=== PATIENT | male | born 1980 | race Caucasian/White ===

== ENCOUNTER 2017-07-24 10:06 | Emergency (ER) | payer BC ==
--- NOTE | 2017-07-24 10:24 | EDM.PDOC ---
ED HPI GENERAL MEDICAL PROBLEM - General Chief Complaint: Gastrointestinal Problem Stated Complaint: BLOODY STOOL Time Seen by Provider: 07/24/17 10:17 Source of Information: Reports: Patient History Limitations: Reports: No Limitations - History of Present Illness INITIAL COMMENTS - FREE TEXT/NARRATIVE: HISTORY AND PHYSICAL: []Patient has problems with kidneys of tumors and has had surgery on these and also having kidney pain also has been having bloody-looking stools for 1 day History of Present Illness: []Patient is complaining of stomach aching and kidney pain Review of Systems: As per history of present illness and below otherwise all systems reviewed and negative. Past medical history: As per history of present illness and as reviewed below otherwise noncontributory. Surgical history: As per history of present illness and as reviewed below otherwise noncontributory. Social history: No reported history of drug or alcohol abuse. Family history: As per history of present illness and as reviewed below otherwise noncontributory. Physical exam: Alert and oriented gentleman answering questions appropriately in full sentences without any shortness of breath HEENT: Atraumatic, normocehpalic, pupils reactive, negative for conjunctival pallor or scleral icterus, mucous membranes moist, throat clear, neck supple, nontender, trachea midline. Lungs: Clear to auscultation, breath sounds equal bilaterally, chest non tender. Heart: S1S2, regular, negative for clicks, rubs, or JVD. Abdomen: Soft, nondistended, nontender. Negative for masses or hepatossplenmegaly. Negative for costovertebral tenderness. Pelvis: Stable nontender. Genitourinary: Deferred. Rectal: Deferred Extremities: Atraumatic, negative for cords or calf pain. Neurovascular unremarkable. Neuro: Awake, alert, oriented. Cranial nerves II through XII unremarkable. Cerebellum unremarkable. Motor and sensory unremarkable throughout. Exam nonfocal. Discussed this case with Dr. Steinberg who recommended Levaquin and Flagyl. Start patient to home, and see patient in the clinic next week Diagnostics: [CBC CMP and chest x-ray and abdominal pelvis CT with contrast] Therapeutics: []Total 60 IV Impression: [Colitis Plan: []Discharged to home Levaquin 750 one daily 10 days Flagyl 250 mg 4 times a day 10 days Definitive disposition and diagnosis as appropriate pending reevaluation and review of above. Onset: Sudden Duration: Hour(s): Location: Reports: Abdomen Quality: Reports: Ache Severity: Moderate Bilateral Lower Back Pain Score (Numeric/FACES): 8 - Related Data Allergies Allergy/AdvReac Type Severity Reaction Status Date / Time No Known Allergies Allergy Verified 07/24/17 10:18 Home Meds: Home Meds Lisinopril/Hydrochlorothiazide [Lisinopril-Hctz 20-12.5 mg Tab] 10 mg PO DAILY 07/27/14 [History] Levofloxacin [Levaquin] 750 mg PO DAILY #10 tablet 07/24/17 [Rx] metroNIDAZOLE [Flagyl] 250 mg PO QID #40 tablet 07/24/17 [Rx] Past Medical History - Past Health History Medical/Surgical History: Denies Medical/Surgical History Cardiovascular History: Reports: Hypertension Other Respiratory History: Denies any problems, 15 yr history of tobacco use Other Genitourinary History: Gross hematuria seen in ER prior to Urology clinic Other Musculoskeletal History: Right back pain, "feel related to the bladder thing" Other Dermatologic History: Eczema arms, hands, feet - Infectious Disease History Infectious Disease History: Reports: Chicken Pox Other Infectious Disease History: childhood Social & Family History - Family History Family Medical History: Noncontributory - Tobacco Use Smoking Status *Q: Current Every Day Smoker Years of Tobacco use: 20 Packs/Tins Daily: 0.5 - Alcohol Use Days Per Week of Alcohol Use: 0 - Recreational Drug Use Recreational Drug Use: No Drug Use in Last 12 Months: No ED ROS GENERAL - Review of Systems Review Of Systems: ROS reveals no pertinent complaints other than HPI. ED EXAM, GI/ABD - Physical Exam Exam: See Below (See dictation) Course - Vital Signs Last Recorded V/S: Last Vital Signs Temp 37.6 C 07/24/17 10:13 Pulse 122 H 07/24/17 10:13 Resp 18 07/24/17 10:13 BP 154/96 H 07/24/17 10:13 Pulse Ox 99 07/24/17 10:13 - Orders/Labs/Meds Orders: Active Orders 24 hr Category Date Time Status CULTURE URINE [RM] Stat Lab 07/24/17 10:25 Uncollected OCCULT BLOOD DIAGNOSTIC [OP] Stat Lab 07/24/17 10:58 Received UA W/MICROSCOPIC [URIN] Stat Lab 07/24/17 10:25 Uncollected Sodium Chloride 0.9% [Saline Flush] Med 07/24/17 10:25 Active 10 ml FLUSH ASDIRECTED PRN Sodium Chloride 0.9% [Saline Flush] Med 07/24/17 10:25 Active 2.5 ml FLUSH ASDIRECTED PRN Saline Lock Insert [OM.PC] Stat Oth 07/24/17 10:25 Ordered Medication Orders Sodium Chloride (Saline Flush) 10 ml FLUSH ASDIRECTED PRN PRN Reason: Keep Vein Open Sodium Chloride (Saline Flush) 2.5 ml FLUSH ASDIRECTED PRN PRN Reason: Keep Vein Open Labs: Laboratory Tests 07/24/17 07/24/17 Range/Units 10:40 10:40 WBC 14.59 H (4.0-11.0) K/uL RBC 5.88 (4.50-5.90) M/uL Hgb 18.1 H (13.0-17.0) g/dL Hct 51.1 H (38.0-50.0) % MCV 86.9 (80.0-98.0) fL MCH 30.8 (27.0-32.0) pg MCHC 35.4 (31.0-37.0) g/dL RDW Std Deviation 46.7 (28.0-62.0) fl RDW Coeff of Mike 15 (11.0-15.0) % Plt Count 234 (150-400) K/uL MPV 10.30 (7.40-12.00) fL Neut % (Auto) 68.2 (48.0-80.0) % Lymph % (Auto) 22.1 (16.0-40.0) % [place] % (Auto) 8.2 (0.0-15.0) % Eos % (Auto) 1.2 (0.0-7.0) % Baso % (Auto) 0.3 (0.0-1.5) % Neut # (Auto) 9.9 H (1.4-5.7) K/uL Lymph # (Auto) 3.2 H (0.6-2.4) K/uL [place] # (Auto) 1.2 H (0.0-0.8) K/uL Eos # (Auto) 0.2 (0.0-0.7) K/uL Baso # (Auto) 0.1 (0.0-0.1) K/uL Nucleated RBC % 0.0 /100WBC Nucleated RBCs # 0 K/uL Sodium 137 (136-146) mmol/L Potassium 3.9 (3.5-5.1) mmol/L Chloride 103 (98-110) mmol/L Carbon Dioxide 23 (21-31) mmol/L BUN 9 (6.0-23.0) mg/dL Creatinine 1.1 (0.6-1.5) mg/dL Est Cr Clr Drug Dosing 95.86 mL/min Estimated GFR (MDRD) > 60.0 ml/min Glucose 109 (60-110) mg/dL Calcium 9.6 (8.8-10.8) mg/dL Total Bilirubin 1.0 (0.1-1.5) mg/dL AST 24 (5-40) IU/L ALT 31 (8-54) IU/L Alkaline Phosphatase 58 (40-150) Total Protein 7.8 (6.0-8.0) g/dL Albumin 4.3 (3.5-5.0) g/dL Globulin 3.5 (2.0-3.5) g/dL Albumin/Globulin Ratio 1.2 L (1.3-2.8) Meds: Medications Generic Name Dose Route Start Last Admin Trade Name Freq PRN Reason Stop Dose Admin Sodium Chloride 10 ml 07/24/17 10:25 Saline Flush FLUSH ASDIRECTED PRN Keep Vein Open Sodium Chloride 2.5 ml 07/24/17 10:25 Saline Flush FLUSH ASDIRECTED PRN Keep Vein Open Discontinued Medications Generic Name Dose Route Start Last Admin Trade Name Lili PRN Reason Stop Dose Admin Famotidine 20 mg 07/24/17 10:26 07/24/17 11:08 Pepcid IVPUSH 07/24/17 10:27 20 mg ONETIME ONE Administration Sodium Chloride 1,000 mls @ 999 mls/hr 07/24/17 10:26 07/24/17 11:07 Normal Saline IV 07/24/17 11:26 999 mls/hr STAT ONE Administration Ketorolac Tromethamine 30 mg 07/24/17 10:26 07/24/17 11:07 Toradol IVPUSH 07/24/17 10:27 30 mg ONETIME ONE Administration Ondansetron HCl 4 mg 07/24/17 10:26 07/24/17 11:08 Zofran IVPUSH 07/24/17 10:27 4 mg ONETIME ONE Administration Departure - Departure Time of Disposition: 12:24 Disposition: Home, Self-Care 01 Condition: Good Clinical Impression: Colitis - Discharge Information Prescriptions: Levofloxacin [Levaquin] 750 mg PO DAILY #10 tablet metroNIDAZOLE [Flagyl] 250 mg PO QID #40 tablet Referrals: PCP,None [Primary Care Provider] - Forms: ED Department Discharge - My Orders Last 24 Hours: My Active Orders 07/24/17 10:25 CULTURE URINE [RM] Stat UA W/MICROSCOPIC [URIN] Stat Sodium Chloride 0.9% [Saline Flush] 10 ml FLUSH ASDIRECTED PRN Sodium Chloride 0.9% [Saline Flush] 2.5 ml FLUSH ASDIRECTED PRN Saline Lock Insert [OM.PC] Stat 07/24/17 10:58 OCCULT BLOOD DIAGNOSTIC [OP] Stat - Assessment/Plan Last 24 Hours: My Active Orders 07/24/17 10:25 CULTURE URINE [RM] Stat UA W/MICROSCOPIC [URIN] Stat Sodium Chloride 0.9% [Saline Flush] 10 ml FLUSH ASDIRECTED PRN Sodium Chloride 0.9% [Saline Flush] 2.5 ml FLUSH ASDIRECTED PRN Saline Lock Insert [OM.PC] Stat 07/24/17 10:58 OCCULT BLOOD DIAGNOSTIC [OP] Stat
[2017-07-24] MEDS ORDERED: Sodium Chloride 0.9% 10 ML Syringe FLUSH PRN (10:25)
[2017-07-24] MEDS ORDERED: Sodium Chloride 0.9% 2.5 ML Syringe FLUSH PRN (10:25)
[2017-07-24] MEDS ORDERED: Sodium Chloride 0.9% 1,000 ML IV ONE (10:26)
[2017-07-24] MEDS ORDERED: Ketorolac 30 MG/ML SDV IVPUSH ONE (10:26)
[2017-07-24] MEDS ORDERED: Ondansetron 4 MG/2 ML SDV IVPUSH ONE (10:26)
[2017-07-24] MEDS ORDERED: Famotidine 20 MG/2 ML SDV IVPUSH ONE (10:26)
[2017-07-24 11:12] LABS: CHLORIDE,CL 103 mmol/L (98-110); SODIUM,NA 137 mmol/L (136-146)
--- NOTE | 2017-07-24 11:56 | CR ---
EXAMINATION: Two-view chest (PA and Lateral views). HISTORY: Shortness of breath. FINDINGS: The trachea is midline. The cardiomediastinal silhouette is within normal limits. No pulmonary infilt rates, effusions or pneumothorax. Osseous structures appear unremarkable. IMPRESSION: No acute cardiopulmonary process.
--- NOTE | 2017-07-24 12:06 | CT ---
CT of the abdomen and pelvis with contrast. HISTORY: Pain TECHNIQUE: Axial CT images were obtained of the abdomen and pelvis following administration of 100 mL of Isovue-370 in the left antecubital fossa without complication. Coronal and sagittal reconstructio ns obtained. FINDINGS: The lung bases are clear, no pleural effusion. Mild bilateral gynecomastia. The liver, spleen, adrenal glands, and pancreas appear normal. The gallbladder is normal. No bulky re troperitoneal lymphadenopathy or abdominal ascites. The kidneys enhance and function symmetrically without evidence of obstructive uropathy. The large and small bowel are normal in caliber without evidence of obstruction. There is however mod erate colonic wall thickening noted within the descending colon with mild adjacent stranding. No sign ificant diverticulosis noted within this region. The appendix is normal. No bulky pelvic lymphadenopa thy or free pelvic fluid. The urinary bladder is normal. Mild subcutaneous edema noted lateral proxim al thighs bilaterally. No suspicious osseous abnormalities identified. IMPRESSION: 1. Moderate colonic wall thickening within the descending colon, likely representing a focal colitis. 2. Mild gynecomastia bilaterally.
[2017-07-24] MEDS ORDERED: Iopamidol 755 MG/ML 500 ML Multipack Bottle IVPUSH STA (12:39)
[2017-07-24 19:21] VITALS: BP 125/67
== END 2017-07-24 12:38 | disposition home or self-care (01) ==
LOC: MW.ED 10:06
DX: K52.9 Noninfective gastroenteritis and colitis, unspecified (principal); I10 Essential (primary) hypertension; F17.210 Nicotine dependence, cigarettes, uncomplicated; Z79.2 Long term (current) use of antibiotics; Z79.899 Other long term (current) drug therapy
CPT/HCPCS: 36415; 71020; 74177; 80053; 82272; 85025; 96361; 96374; 96375; 99284; J1885; J2405; J7040; Q9967

== ENCOUNTER 2017-08-18 10:06 | Day surgery (SDC) | payer BC ==
[~2017-08-18 10:06] MED LIST: Lactated Ringers 1,000 ML IV SCH
[2017-08-18] MEDS ORDERED: Lidocaine 2% 5 ML SDV ONE (10:27)
[2017-08-18] MEDS ORDERED: Midazolam 1 MG/ML 2 ML SDV ONE (10:27)
[2017-08-18] MEDS ORDERED: fentaNYL 100 MCG/2 ML SDV ONE (10:27)
[2017-08-18] MEDS ORDERED: Propofol 200 MG/20 ML SDV ONE (10:27)
--- NOTE | 2017-08-18 11:10 | PCM.PREANE ---
Preanesthetic Assessment - Procedure Proposed Procedure: Colonoscopy - Anesthesia/Transfusion/Family Hx Anesthesia History: Prior Anesthesia Without Reaction Other Type of Anesthesia Reaction Comment: Denies any problem with [place] teeth sedation Family History of Anesthesia Reaction: No Transfusion History: No Prior Transfusion(s) Intubation History: Unknown - Review of Systems General: No Symptoms Pulmonary: Other (Q day smoker) Cardiovascular: Other (HTN) Gastrointestinal: Diarrhea (colitis) Neurological: No Symptoms Other: Reports: None - Physical Assessment NPO Status Date: 08/17/17 NPO Status Time: 22:30 Height: 5 ft 10 in Weight: 235 lb ASA Class: 2 Mental Status: Alert & Oriented x3 Airway Class: Mallampati = 1 Dentition: Reports: Normal Dentition Thyro-Mental Finger Breadths: 3 (short neck) Mouth Opening Finger Breadths: 3 ROM/Head Extension: Full Lungs: Clear to Auscultation, Normal Respiratory Effort Cardiovascular: Regular Rate, Regular Rhythm, No Murmurs - Allergies Allergies/Adverse Reactions: Allergies Allergy/AdvReac Type Severity Reaction Status Date / Time No Known Allergies Allergy Verified 07/24/17 10:18 - Blood Blood Available: No Product(s) Available: None - Anesthesia Plan Pre-Op Medication Ordered: None - Acknowledgements Anesthesia Type Planned: MAC Pt an Appropriate Candidate for the Planned Anesthesia: Yes Alternatives and Risks of Anesthesia Discussed w Pt/Guardian: Yes Pt/Guardian Understands and Agrees with Anesthesia Plan: Yes PreAnesthesia Questionnaire - Past Health History Medical/Surgical History: Denies Medical/Surgical History Cardiovascular History: Reports: Hypertension Gastrointestinal History: Reports: Other (See Below) Other Gastrointestinal History: recently on antibiotics for colitis Genitourinary History: Reports: Other (See Below) Endocrine/Metabolic History: Reports: Obesity/BMI 30+ Other Dermatologic History: Eczema arms, hands, feet - Infectious Disease History Infectious Disease History: Reports: Chicken Pox Other Infectious Disease History: childhood - Past Surgical History Head Surgeries/Procedures: Reports: None Other Male Surgeries/Procedures: 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 - SUBSTANCE USE Smoking Status *Q: Light Tobacco Smoker Tobacco Use Within Last Twelve Months: Cigarettes, Other (See Below) Days Per Week of Alcohol Use: 0 Recreational Drug Use History: No - HOME MEDS Home Medications: Home Meds Lisinopril 10 mg PO DAILY 08/12/17 [History] - CURRENT (IN HOUSE) MEDS Current Meds: Current Medications Lactated Ringer's (Ringers, Lactated) 1,000 mls @ 125 mls/hr IV ASDIRECTED TERRANCE Last Admin: 08/18/17 10:38 Dose: 125 mls/hr Discontinued Medications Fentanyl (Sublimaze) Confirm Administered Dose 100 mcg .ROUTE .STK-MED ONE Stop: 08/18/17 10:28 Lidocaine (Xylocaine-Mpf 2%) Confirm Administered Dose 10 ml .ROUTE .STK-MED ONE Stop: 08/18/17 10:28 Midazolam HCl (Versed 1 Mg/Ml) Confirm Administered Dose 2 mg .ROUTE .STK-MED ONE Stop: 08/18/17 10:28 Propofol (Diprivan 20 Ml) Confirm Administered Dose 400 mg .ROUTE .STK-MED ONE Stop: 08/18/17 10:28
--- NOTE | 2017-08-18 12:37 | PCM.OPNOTE ---
- General Post-Op/Procedure Note Date of Surgery/Procedure: 08/18/17 Operative Procedure(s): colonoscopy w bx Findings: see dict [id number] Pre Op Diagnosis: colitis and BRBPR Post-Op Diagnosis: Same Anesthesia Technique: Moderate Sedation Primary Surgeon: Jerry Steinberg Pathology: random colon bx Complications: None Condition: Good
--- NOTE | 2017-08-18 13:09 | PCM.POSTAN ---
POST ANESTHESIA ASSESSMENT - MENTAL STATUS Mental Status: Alert, Oriented - RESPIRATORY Respiratory Status: Respiratory Rate WNL, Airway Patent, O2 Saturation Stable - CARDIOVASCULAR CV Status: Pulse Rate WNL, Blood Pressure Stable - GASTROINTESTINAL GI Status: No Symptoms - PAIN Pain Score: 0 - POST OP HYDRATION Hydration Status: Adequate & Stable
--- NOTE | 2017-08-18 13:14 | PCM48HPAN ---
Post Anesthesia Note - EVALUATION WITHIN 48HRS OF ANESTHETIC Vital Signs in Normal Range: Yes Patient Participated in Evaluation: Yes Respiratory Function Stable: Yes Airway Patent: Yes Cardiovascular Function Stable: Yes Hydration Status Stable: Yes Pain Control Satisfactory: Yes Nausea and Vomiting Control Satisfactory: Yes Mental Status Recovered: Yes
[2017-08-18 13:50] VITALS: BP 124/76
--- NOTE | 2017-08-18 19:24 | OR ---
SURGEON: Jerry Steinberg MD DATE OF PROCEDURE: 08/18/2017 PREOPERATIVE DIAGNOSIS: Bright red blood per rectum and colitis. POSTOPERATIVE DIAGNOSIS: Hemorrhoids. PROCEDURE PERFORMED: Colonoscopy with biopsy. DESCRIPTION OF PROCEDURE: The patient was taken to the endoscopy room. A time out was called, patient identified, and procedure identified. Diprivan was then administrated. Patient went from awake to sleep, hearing doctor talking or door closing is normal. Perineum inspection and digital examination were then performed. A well- lubricated colonoscope was gently inserted through the rectum, advanced past the rectosigmoid junction, the descending colon, splenic flexure, transverse colon, hepatic flexure, ascending colon, arrived to the cecum. Cecum was identified as dictated in the finding. Then the scope was carefully withdrawn while attention was paid to the mucosal surface for any abnormality. Air will be sucked out during the scope withdrawal. At the rectum, retroflexed to examine any rectal diseases, fistula or hemorrhoids. During mucosal examination, random biopsy performed. Patient tolerated procedure well. There were no intraoperative complications, and Dr. Steinberg was present throughout the whole procedure. FINDIN. The patient is easily sedated with MIXER FOAM RUBBER and Diprivan. The patient is soundly snoring. 2. Bowel prep is below average. Large amount of liquid and particle stool is not semiformed stool, but it does obscure the study, so did compromise the study. Colon rather straight forward. Cecum indicated by ileocecal fold, one-to-one indentation, light emittance, and appendiceal orifice. Mucosa examined upon scope pulling out with constant irrigation. Random biopsy performed because of history of colitis and the patient does not have diverticulosis, polyp, mass, growth, inflammation, stricture, ulceration, AV malformation, and bleeding, none of those. The patient does have mild internal hemorrhoids. No external hemorrhoids. The patient would benefit from repeat colonoscopy 10 years from today or if clinically indicated otherwise or if the biopsy turned out to be pathologic. As always, thank you for the kind referral. TALON DAMON /[id number] CYNDY
== END 2017-08-18 13:30 | disposition home or self-care (01) ==
LOC: MW.SDS 10:06
PROVIDERS: ATTEND Surgery
DX: K64.8 Other hemorrhoids (principal); K52.9 Noninfective gastroenteritis and colitis, unspecified; I10 Essential (primary) hypertension; F17.210 Nicotine dependence, cigarettes, uncomplicated; E66.9 Obesity, unspecified; Z68.33 Body mass index [BMI] 33.0-33.9, adult; Z79.899 Other long term (current) drug therapy; Z98.890 Other specified postprocedural states
CPT/HCPCS: 45380; J2250; J3010; J7120; 00810; 88305; J2704

== ENCOUNTER 2017-11-11 14:05 | Emergency (ER) | payer BC ==
--- NOTE | 2017-11-11 14:24 | EDM.PDOC ---
ED HPI GENERAL MEDICAL PROBLEM - General Chief Complaint: ENT Problem Stated Complaint: ORAL PAIN Time Seen by Provider: 11/11/17 14:20 Source of Information: Reports: Patient History Limitations: Reports: No Limitations - History of Present Illness INITIAL COMMENTS - FREE TEXT/NARRATIVE: HISTORY AND PHYSICAL: History of present illness: Patient is a 37-year-old male who presents to the emergency room with complaints of right upper dental pain and swelling and 3 days. He states he has a known fractured tooth to the right upper posterior molar which is now "abscess ". He has an appointment with his dentist on Thursday and is here today requesting antibiotics. Denies any fever, chills, chest pain or shortness of breath. He denies any abdominal pain, nausea, vomiting or diarrhea/constipation. Review of systems: As per history of present illness and below otherwise all systems reviewed and negative. Past medical history: As per history of present illness and as reviewed below otherwise noncontributory. Surgical history: As per history of present illness and as reviewed below otherwise noncontributory. Social history: No reported history of drug or alcohol abuse. Family history: As per history of present illness and as reviewed below otherwise noncontributory. Physical exam: HEENT: Atraumatic, normocephalic, pupils reactive, negative for conjunctival pallor or scleral icterus, mucous membranes moist, throat clear, neck supple, dental decay noted to right posterior upper molar, with mild swelling along the gum line. Neck is nontender, no lymphadenopathy, trachea midline. NO mastoid tenderness. No drooling or trismus. Lungs: Clear to auscultation, breath sounds equal bilaterally, chest nontender. Heart: S1S2, regular, negative for clicks, rubs, or JVD. Abdomen: Soft, nondistended, nontender. Negative for masses or hepatosplenomegaly. Negative for costovertebral tenderness. Pelvis: Stable nontender. Genitourinary: Deferred. Rectal: Deferred. Extremities: Atraumatic, negative for cords or calf pain. Neurovascular unremarkable. Neuro: Awake, alert, oriented. Cranial nerves II through XII unremarkable. Cerebellum unremarkable. Motor and sensory unremarkable throughout. Exam nonfocal. Patient states that he has used clindamycin in the past which cleared previous dental abscess. He declines the need for any pain medication, although they were offered. He is willing to receive dental balls, topical. He will follow-up with his dentist later this week for further management. Diagnostics: [] Therapeutics: Dental balls Impression: Dental abscess Plan: 1. These take the antibiotic as prescribed. Tylenol and/or ibuprofen as needed for pain management. He may use the dental balls that have been provided for you , please do not swallow. 2. Keep your appointment with your dentist as directed. Return to the ED as needed and as discussed. Definitive disposition and diagnosis as appropriate pending reevaluation and review of above. Duration: Day(s): Location: Reports: Face Right Upper Tooth/Teeth Pain Score (Numeric/FACES): 6 - Related Data Allergies Allergy/AdvReac Type Severity Reaction Status Date / Time No Known Allergies Allergy Verified 11/11/17 14:23 Home Meds: Home Meds Lisinopril 20 mg PO DAILY 08/12/17 [History] Clindamycin HCl [Cleocin HCl] 300 mg PO Q8HR 10 Days #30 capsule 11/11/17 [Rx] Past Medical History - Past Health History Medical/Surgical History: Denies Medical/Surgical History Cardiovascular History: Reports: Hypertension Gastrointestinal History: Reports: Other (See Below) Other Gastrointestinal History: recently on antibiotics for colitis Genitourinary History: Reports: Other (See Below) Endocrine/Metabolic History: Reports: Obesity/BMI 30+ Other Dermatologic History: Eczema arms, hands, feet - Infectious Disease History Infectious Disease History: Reports: Chicken Pox Other Infectious Disease History: childhood - Past Surgical History Head Surgeries/Procedures: Reports: None Other Male Surgeries/Procedures: 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 ED EXAM, ENT - Physical Exam Exam: See Below (See dictation) Course - Vital Signs Last Recorded V/S: Last Vital Signs Temp 97.5 F 11/11/17 14:20 Pulse 84 03/21/18 14:20 Resp 18 11/11/17 14:20 BP 133/86 11/11/17 14:20 Pulse Ox 95 11/11/17 14:20 - Orders/Labs/Meds Meds: Medications Discontinued Medications Generic Name Dose Route Start Last Admin Trade Name Lili PRN Reason Stop Dose Admin Benzocaine 2 each 11/11/17 14:25 Hurricaine One 20% MUCMEM 11/11/17 14:26 ONETIME ONE Lidocaine HCl 15 ml 11/11/17 14:25 Xylocaine 2% Viscous PO 11/11/17 14:26 ONETIME ONE Departure - Departure Time of Disposition: 14:30 Disposition: Home, Self-Care 01 Clinical Impression: Dental abscess - Discharge Information Prescriptions: Clindamycin HCl [Cleocin HCl] 300 mg PO Q8HR 10 Days #30 capsule Instructions: Dental Abscess, [id number] Forms: ED Department Discharge Additional Instructions: My general discharge The following information is given to patients seen in the emergency department who are being discharged to home. This information is to outline your options for follow-up care. We provide all patients seen in our emergency department with a follow-up referral. The need for follow-up, as well as the timing and circumstances, are variable depending upon the specifics of your emergency department visit. If you don't have a primary care physician on staff, we will provide you with a referral. We always advise you to contact your personal physician following an emergency department visit to inform them of the circumstance of the visit and for follow-up with them and/or the need for any referrals to a consulting specialist. The emergency department will also refer you to a specialist when appropriate. This referral assures that you have the opportunity for follow-up care with a specialist. All of these measure are taken in an effort to provide you with optimal care, which includes your follow-up. Under all circumstances we always encourage you to contact your private physician who remains a resource for coordinating your care. When calling for follow-up care, please make the office aware that this follow-up is from your recent emergency room visit. If for any reason you are refused follow-up, please contact the [facility] Emergency Department at and asked to speak to the emergency department charge nurse. [facility] [address] [place] [id number] [facility] - General Surgery Professional Building [address] [place] [address], [address] [place] [address] 1. These take the antibiotic as prescribed. Tylenol and/or ibuprofen as needed for pain management. He may use the dental balls that have been provided for you , please do not swallow. 2. Keep your appointment with your dentist as directed. Return to the ED as needed and as discussed 3. The phone number for general surgery has been provided for you in regards to the lymphoma you had questions about.
[2017-11-11] MEDS ORDERED: Lidocaine 2% Viscous Solution 15 ML Cup PO ONE (14:25)
[2017-11-11] MEDS ORDERED: Benzocaine 20% Topical Spray UD MUCMEM ONE (14:25)
[2017-11-11 15:30] VITALS: BP 138/84
== END 2017-11-11 14:39 | disposition home or self-care (01) ==
LOC: MW.ED 14:05
DX: K04.7 Periapical abscess without sinus (principal); I10 Essential (primary) hypertension; F17.210 Nicotine dependence, cigarettes, uncomplicated; Z79.899 Other long term (current) drug therapy
CPT/HCPCS: 99282; A9270; 99283

== ENCOUNTER 2018-01-20 19:59 | Emergency (ER) | payer BC, OTHER ==
--- NOTE | 2018-01-20 20:56 | EDM.PDOC ---
ED HPI GENERAL MEDICAL PROBLEM - General Chief Complaint: Genitourinary Problem Stated Complaint: KIDNEY ISSUES Time Seen by Provider: 01/20/18 20:10 - History of Present Illness INITIAL COMMENTS - FREE TEXT/NARRATIVE: HISTORY AND PHYSICAL: History of present illness: 37-year-old male presenting emergency department with chief complaint of one week of nausea and "peeing foam". Patient states that for the past week he's had nausea and vomiting and notes that he has been peeing "foam" states that he is also had an "nasty taste" in his mouth. 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 This was discovered 4 years ago. They were surgically cauterized. He did see Dr. Wood who performed one of the surgeries but had the other surgeries in [place]. He denies any fever, chills, diarrhea, hematuria, history of UTI, or dysuria. He denies any change in color to his urine or history of fistula. Does admit to a chronic productive cough with yellowish sputum production but has a 25+ pack year history of smoking. Currently denies any chest pain, palpitations, shortness of breath, syncopal episodes, or focal neurologic deficits. 2150- Leukocytosis 22,000 with left shift, afebrile, blood cultures have been ordered, 1 gram of Rocephin started with 1 L NS, UA pending. 2300-CT abd/pelvis No acute intra-abdominal abnormalities, Small foci of opacity in right middle lobe, CXR pending. 2400-CXR negative patient remaining afebrile no complaints repeat CBC, BMP 0030- CBC shows cont. leukocytosis of 18,000. Patient states he is feeling fine and he has been afebrile. Review of systems: As per history of present illness and below otherwise all systems reviewed and negative. Past medical history: As per history of present illness and as reviewed below otherwise noncontributory. Surgical history: As per history of present illness and as reviewed below otherwise noncontributory. Social history: No reported history of drug or alcohol abuse. Family history: As per history of present illness and as reviewed below otherwise noncontributory. Physical exam: HEENT: Atraumatic, normocephalic, pupils reactive, negative for conjunctival pallor or scleral icterus, mucous membranes moist, throat clear, neck supple, nontender, trachea midline. Lungs: Mild bibasilar crackles with some generalized wheezing, breath sounds equal bilaterally, chest nontender. Heart: S1S2, regular, negative for clicks, rubs, or JVD. Abdomen: Soft, nondistended, mild tenderness in right lower as well as left lower quadrant no CVA tenderness. Negative for masses or hepatosplenomegaly. Negative for costovertebral tenderness. Pelvis: Stable nontender. Genitourinary: Deferred. Rectal: Deferred. Extremities: Atraumatic, negative for cords or calf pain. Neurovascular unremarkable. Neuro: Awake, alert, oriented. Cranial nerves II through XII unremarkable. Cerebellum unremarkable. Motor and sensory unremarkable throughout. Exam nonfocal. Diagnostics: CBC, CMP, UA/UC, blood culture, CT abd/pelvis, CXR Therapeutics: 1 L NS, Rocephin 1 gm IV Impression: Community-acquired pneumonia right middle lobe Plan: I discussed with the patient at length about possible hospitalization for suspected right middle lobe community acquired pneumonia secondary to his elevated white count. Patient was adamantly against admission and stated he was feeling fine. He did guarantee me that if he begins to feel any worse he will come directly back. He did get 1 g of Rocephin and I did give him a prescription for azithromycin. He remained afebrile throughout his stay in the emergency department. He was discharged with above prescription for azithromycin for suspected community-acquired pneumonia and instructed to return to emergency department or follow-up with his primary care provider at [place] if he begins to feel worse. Treatments [employer] REPRESENTATIVE: Reports: Other (see below) Other Treatments [employer] REPRESENTATIVE: Percocet. Bilateral Flank Pain Score (Numeric/FACES): 3 - Related Data Allergies Allergy/AdvReac Type Severity Reaction Status Date / Time No Known Allergies Allergy Verified 01/20/18 20:27 Home Meds: Home Meds Lisinopril 20 mg PO DAILY 08/12/17 [History] Acetaminophen/oxyCODONE [Percocet 325-10 MG] 1 tab PO Q6HR PRN 01/20/18 [History ] Past Medical History - Past Health History Medical/Surgical History: Denies Medical/Surgical History HEENT History: Reports: None Cardiovascular History: Reports: Hypertension Respiratory History: Reports: None Gastrointestinal History: Reports: Other (See Below) Other Gastrointestinal History: recently on antibiotics for colitis Genitourinary History: Reports: Other (See Below) Musculoskeletal History: Reports: None Neurological History: Reports: None Psychiatric History: Reports: Anxiety Endocrine/Metabolic History: Reports: None, Obesity/BMI 30+ Hematologic History: Reports: None Immunologic History: Reports: None Oncologic (Cancer) History: Reports: None Other Dermatologic History: Eczema arms, hands, feet - Infectious Disease History Infectious Disease History: Reports: None Other Infectious Disease History: childhood - Past Surgical History Head Surgeries/Procedures: Reports: None Other Male Surgeries/Procedures: 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 Social & Family History - Family History Family Medical History: Noncontributory - Tobacco Use Smoking Status *Q: Current Every Day Smoker Years of Tobacco use: 25 Packs/Tins Daily: 1.5 Used Tobacco, but Quit: No - Caffeine Use Caffeine Use: Reports: Coffee, Energy Drinks - Recreational Drug Use Recreational Drug Use: No ED ROS GENERAL - Review of Systems Review Of Systems: See Below ED EXAM, GENERAL - Physical Exam Exam: See Below Course - Vital Signs Last Recorded V/S: Last Vital Signs Temp 99.6 F 01/20/18 20:14 Pulse 128 H 01/20/18 20:14 Resp 18 01/20/18 20:14 BP 167/84 H 01/20/18 20:14 Pulse Ox 98 01/20/18 20:14 - Orders/Labs/Meds Orders: Active Orders 24 hr Category Date Time Status Abdomen Pelvis w Cont [CT] Stat Exams 01/20/18 21:49 Taken CXR [Chest 2V] [CR] Stat Exams 01/20/18 23:06 Taken CULTURE BLOOD [BC] Stat Lab 01/20/18 22:10 Received CULTURE BLOOD [BC] Stat Lab 01/20/18 22:20 Received CULTURE URINE [RM] Stat Lab 01/20/18 21:40 Ordered UA W/MICROSCOPIC [URIN] Stat Lab 01/20/18 21:40 Ordered Blood Culture x2 Reflex Set [OM.PC] Stat Oth 01/20/18 21:49 Ordered Labs: Laboratory Tests 01/20/18 01/20/18 01/20/18 Range/Units 21:00 21:00 21:40 WBC 22.83 H (4.0-11.0) K/uL RBC 5.35 (4.50-5.90) M/uL Hgb 15.6 (13.0-17.0) g/dL Hct 43.2 (38.0-50.0) % MCV 80.7 (80.0-98.0) fL MCH 29.2 (27.0-32.0) pg MCHC 36.1 (31.0-37.0) g/dL RDW Std Deviation 52.1 (28.0-62.0) fl RDW Coeff of Mike 18 H (11.0-15.0) % Plt Count 432 H (150-400) K/uL MPV 9.70 (7.40-12.00) fL Neut % (Auto) (48.0-80.0) % Lymph % (Auto) (16.0-40.0) % [place] % (Auto) (0.0-15.0) % Eos % (Auto) (0.0-7.0) % Baso % (Auto) (0.0-1.5) % Neut # (Auto) (1.4-5.7) K/uL Lymph # (Auto) (0.6-2.4) K/uL [place] # (Auto) (0.0-0.8) K/uL Eos # (Auto) (0.0-0.7) K/uL Baso # (Auto) (0.0-0.1) K/uL Add Manual Diff YES Neutrophils % (Manual) 69 (48.0-80.0) % Band Neutrophils % 2 % Lymphocytes % (Manual) 20 (16.0-40.0) % Monocytes % (Manual) 6 (0.0-15.0) % Eosinophils % (Manual) 2 (0.0-7.0) % Basophils % (Manual) 1 (0.0-1.5) % Nucleated RBC % 0.0 /100WBC Absolute Seg Neuts 15.8 H (1.4-5.7) Band Neutrophils # 0.5 Lymphocytes # (Manual) 4.6 H (0.6-2.4) Monocytes # (Manual) 1.4 H (0.0-0.8) Eosinophils # (Manual) 0.5 (0.0-0.7) Basophils # (Manual) 0.2 H (0.0-0.1) Nucleated RBCs # 0 K/uL Sodium 134 L (136-148) mmol/L Potassium 4.2 (3.5-5.1) mmol/L Chloride 97 L (98-107) mmol/L Carbon Dioxide 26.1 (21.0-32.0) mmol/L BUN 14 (7.0-18.0) mg/dL Creatinine 1.4 H (0.8-1.3) mg/dL Est Cr Clr Drug Dosing 74.59 mL/min Estimated GFR (MDRD) 57.0 ml/min Glucose 102 (74-106) mg/dL Calcium 9.1 (8.5-10.1) mg/dL Total Bilirubin 0.7 (0.2-1.0) mg/dL AST 40 H (15-37) IU/L ALT 97 H (14-63) IU/L Alkaline Phosphatase 45 L (46-116) U/L Total Protein 8.3 H (6.4-8.2) g/dL Albumin 3.6 (3.4-5.0) g/dL Globulin 4.7 H (2.0-3.5) g/dL Albumin/Globulin Ratio 0.8 L (1.3-2.8) Urine Color DARK YELLOW Urine Appearance CLEAR Urine pH 6.5 (5.0-8.0) Ur Specific [place] 1.020 (1.001-1.035) Urine Protein 100 (NEGATIVE) mg/dL Urine Glucose (UA) NEGATIVE (NEGATIVE) mg/dL Urine Ketones TRACE H (NEGATIVE) mg/dL Urine Occult Blood TRACE-INTACT (NEGATIVE) Urine Nitrite NEGATIVE (NEGATIVE) Urine Bilirubin MODERATE H (NEGATIVE) Urine Ictotest NEGATIVE Urine Urobilinogen 1.0 (<2.0) EU/dL Ur Leukocyte Esterase NEGATIVE (NEGATIVE) Urine RBC 2-5 (0-2/HPF) Urine WBC 0-3 (0-5/HPF) Ur Epithelial Cells RARE (NONE-FEW) Amorphous Sediment FEW (NEGATIVE) Urine Bacteria FEW (NEGATIVE) 01/21/18 01/21/18 Range/Units 00:18 00:18 WBC 18.69 H (4.0-11.0) K/uL RBC 4.91 (4.50-5.90) M/uL Hgb 13.9 (13.0-17.0) g/dL Hct 38.8 (38.0-50.0) % MCV 79.0 L (80.0-98.0) fL MCH 28.3 (27.0-32.0) pg MCHC 35.8 (31.0-37.0) g/dL RDW Std Deviation 51.7 (28.0-62.0) fl RDW Coeff of Mike 19 H (11.0-15.0) % Plt Count 375 (150-400) K/uL MPV 9.00 (7.40-12.00) fL Neut % (Auto) 73.6 (48.0-80.0) % Lymph % (Auto) 16.1 (16.0-40.0) % [place] % (Auto) 7.3 (0.0-15.0) % Eos % (Auto) 2.5 (0.0-7.0) % Baso % (Auto) 0.5 (0.0-1.5) % Neut # (Auto) 13.8 H (1.4-5.7) K/uL Lymph # (Auto) 3.0 H (0.6-2.4) K/uL [place] # (Auto) 1.4 H (0.0-0.8) K/uL Eos # (Auto) 0.5 (0.0-0.7) K/uL Baso # (Auto) 0.1 (0.0-0.1) K/uL Add Manual Diff Neutrophils % (Manual) (48.0-80.0) % Band Neutrophils % % Lymphocytes % (Manual) (16.0-40.0) % Monocytes % (Manual) (0.0-15.0) % Eosinophils % (Manual) (0.0-7.0) % Basophils % (Manual) (0.0-1.5) % Nucleated RBC % /100WBC Absolute Seg Neuts (1.4-5.7) Band Neutrophils # Lymphocytes # (Manual) (0.6-2.4) Monocytes # (Manual) (0.0-0.8) Eosinophils # (Manual) (0.0-0.7) Basophils # (Manual) (0.0-0.1) Nucleated RBCs # K/uL Sodium 134 L (136-148) mmol/L Potassium 4.5 (3.5-5.1) mmol/L Chloride 100 (98-107) mmol/L Carbon Dioxide 25.7 (21.0-32.0) mmol/L BUN 13 (7.0-18.0) mg/dL Creatinine 1.3 (0.8-1.3) mg/dL Est Cr Clr Drug Dosing 80.33 mL/min Estimated GFR (MDRD) > 60.0 ml/min Glucose 84 (74-106) mg/dL Calcium 8.3 L (8.5-10.1) mg/dL Total Bilirubin (0.2-1.0) mg/dL AST (15-37) IU/L ALT (14-63) IU/L Alkaline Phosphatase (46-116) U/L Total Protein (6.4-8.2) g/dL Albumin (3.4-5.0) g/dL Globulin (2.0-3.5) g/dL Albumin/Globulin Ratio (1.3-2.8) Urine Color Urine Appearance Urine pH (5.0-8.0) Ur Specific [place] (1.001-1.035) Urine Protein (NEGATIVE) mg/dL Urine Glucose (UA) (NEGATIVE) mg/dL Urine Ketones (NEGATIVE) mg/dL Urine Occult Blood (NEGATIVE) Urine Nitrite (NEGATIVE) Urine Bilirubin (NEGATIVE) Urine Ictotest Urine Urobilinogen (<2.0) EU/dL Ur Leukocyte Esterase (NEGATIVE) Urine RBC (0-2/HPF) Urine WBC (0-5/HPF) Ur Epithelial Cells (NONE-FEW) Amorphous Sediment (NEGATIVE) Urine Bacteria (NEGATIVE) Meds: Medications Discontinued Medications Generic Name Dose Route Start Last Admin Trade Name Freq PRN Reason Stop Dose Admin Ceftriaxone Sodium/Dextrose 1 50 mls @ 100 mls/hr 01/20/18 21:50 01/20/18 22: 14 gm/ Premix IV 01/20/18 22:19 100 mls/hr ONETIME ONE Administration Sodium Chloride 1,000 mls @ 999 mls/hr 01/20/18 21:55 01/20/18 22:13 Normal Saline IV 01/20/18 22:55 999 mls/hr STAT ONE Administration Iopamidol 100 ml 01/20/18 22:34 01/20/18 22:41 Isovue-370 (76%) IVPUSH 01/20/18 22:35 100 ml ONETIME STA Administration Departure - Departure Time of Disposition: 01:07 Disposition: Home, Self-Care 01 Condition: Good Clinical Impression: Community acquired pneumonia Qualifiers: Laterality: right Lung location: middle lobe of lung Qualified Code(s): J18.1 - Lobar pneumonia, unspecified organism - Discharge Information Referrals: PCP,None [Primary Care Provider] - Forms: ED Department Discharge Additional Instructions: My general discharge The following information is given to patients seen in the emergency department who are being discharged to home. This information is to outline your options for follow-up care. We provide all patients seen in our emergency department with a follow-up referral. The need for follow-up, as well as the timing and circumstances, are variable depending upon the specifics of your emergency department visit. If you don't have a primary care physician on staff, we will provide you with a referral. We always advise you to contact your personal physician following an emergency department visit to inform them of the circumstance of the visit and for follow-up with them and/or the need for any referrals to a consulting specialist. The emergency department will also refer you to a specialist when appropriate. This referral assures that you have the opportunity for follow-up care with a specialist. All of these measure are taken in an effort to provide you with optimal care, which includes your follow-up. Under all circumstances we always encourage you to contact your private physician who remains a resource for coordinating your care. When calling for follow-up care, please make the office aware that this follow-up is from your recent emergency room visit. If for any reason you are refused follow-up, please contact the [facility] at and asked to speak to the emergency department charge nurse. [address] [address] Return to emergency department if any new or worsening symptoms. Take antibiotics as prescribed. - My Orders Last 24 Hours: My Active Orders 01/20/18 21:40 CULTURE URINE [RM] Stat UA W/MICROSCOPIC [URIN] Stat 01/20/18 21:49 Abdomen Pelvis w Cont [CT] Stat Blood Culture x2 Reflex Set [OM.PC] Stat 01/20/18 22:10 CULTURE BLOOD [BC] Stat 01/20/18 22:20 CULTURE BLOOD [BC] Stat 01/20/18 23:06 CXR [Chest 2V] [CR] Stat - Assessment/Plan Last 24 Hours: My Active Orders 01/20/18 21:40 CULTURE URINE [RM] Stat UA W/MICROSCOPIC [URIN] Stat 01/20/18 21:49 Abdomen Pelvis w Cont [CT] Stat Blood Culture x2 Reflex Set [OM.PC] Stat 01/20/18 22:10 CULTURE BLOOD [BC] Stat 01/20/18 22:20 CULTURE BLOOD [BC] Stat 01/20/18 23:06 CXR [Chest 2V] [CR] Stat
[2018-01-20] MEDS ORDERED: cefTRIAXone 1 GM in Premix Bag 1 BAG IV ONE (21:50)
[2018-01-20] MEDS ORDERED: Sodium Chloride 0.9% 1,000 ML IV ONE (21:55)
[2018-01-20] MEDS ORDERED: Iopamidol 755 Mg/ML 100 ML Bottle IVPUSH STA (22:34)
[2018-01-21 00:39] LABS: CHLORIDE,CL 100 mmol/L (98-107); SODIUM,NA 134 mmol/L (136-148)
[2018-01-21 01:23] VITALS: BP 139/72
--- NOTE | 2018-01-21 09:59 | CT ---
EXAM DATE: 01/20/18 PATIENT'S AGE: 37 Patient: ZEENAT CROCKETT Facility: [place], [place] Site . Site : 1980 Study: CT Abdomen/Pelvis [id number]/30/2018 10:49:30 PM Ordering Physician: John Galarza Final Report: INDICATION: Bilateral flank pain. CT ABDOMEN AND PELVIS WITH CONTRAST TECHNIQUE: Multidetector CT imaging was performed through the abdomen and pelvis following intravenous contrast administration using 100 mL Isovue 370. Coronal and sagittal reconstructions were generated. COMPARISON: 07/24/2017 CT abdomen and pelvis. FINDINGS: Lower chest: Small foci of airspace opacity in the right middle lobe, new compared to the previous exam, possibly representing pneumonia. Liver: Within normal limits. Gallbladder and bile ducts: No gallbladder wall thickening or calcified gallstones. No biliary dilation identified. Pancreas: Unremarkable. Spleen: Normal. Adrenals: No nodules or masses. Kidneys, ureters, and urinary bladder: No renal masses or hydronephrosis. No bladder mass or definite wall thickening. Gastrointestinal tract: Normal caliber bowel without wall thickening. No evidence of appendicitis. Vascular structures: Normal for age. Peritoneum: No free air, abscess, or significant free fluid. Lymph nodes: No pathologically enlarged nodes identified. Reproductive organs: No pelvic masses. Bones: Unremarkable osseous structures. Nonspecific subcutaneous edema over the lateral aspect of the upper thighs bilaterally, incompletely imaged. IMPRESSION: 1. No acute intra-abdominal abnormality identified. 2. Small foci of airspace opacity in the right middle lobe, possibly representing subtle pneumonia. 3. Nonspecific subcutaneous edema over the lateral aspect of the upper thighs bilaterally, incompletely imaged. MIRANDA SCHULZ MD [employer] Dictated by Marquis Schulz MD @ 01/20/2018 11:00:40 PM Dictated by: Marquis Schulz MD @ 01/20/2018 23:02:20 (Electronic Signature) Report Signed by Proxy. CYNDY
--- NOTE | 2018-01-21 10:01 | CR ---
EXAM DATE: 01/20/18 PATIENT'S AGE: 37 Patient: ZEENAT CROCKETT Facility: [place], [place] Site . Site : 1980 Study: XRay Chest [id number]/30/2018 11:26:24 PM Ordering Physician: John Galarza Final Report: INDICATION: Cough TECHNIQUE: Chest radiograph 2 views COMPARISON: 07/24/17 FINDINGS: Mediastinum: The heart silhouette is normal in size and morphology. The mediastinum is normal in appearance. Lungs: Both lungs are unremarkable in appearance. No sign of pleural effusion seen. No pneumothorax is identified. Bones and soft tissue: Unremarkable for age. IMPRESSION: 1. No acute cardiopulmonary disease is seen. Dictated by: Salvador Edouard MD @ 01/20/2018 23:41:00 (Electronic Signature) Report Signed by Proxy. [facility] PSYCHIAT[facility] CENTERAlex
== END 2018-01-21 01:15 | disposition home or self-care (01) ==
LOC: MW.ED 19:59
DX: J18.9 Pneumonia, unspecified organism (principal); I10 Essential (primary) hypertension; E66.9 Obesity, unspecified; F17.210 Nicotine dependence, cigarettes, uncomplicated
CPT/HCPCS: 36415; 71046; 74177; 80048; 80053; 81001; 85025; 87040; 87086; 96361; 96365; 99284; J0696; J7040; Q9967

== ENCOUNTER 2018-01-21 19:27 | Emergency (ER) | payer BC, OTHER ==
[2018-01-21] MEDS ORDERED: Ketorolac 30 MG/ML SDV IVPUSH ONE (20:12)
[2018-01-21] MEDS ORDERED: Ondansetron 4 MG/2 ML SDV IVPUSH ONE (20:12)
[2018-01-21] MEDS ORDERED: Sodium Chloride 0.9% 1,000 ML IV ONE (20:12)
--- NOTE | 2018-01-21 20:15 | EDM.PDOC ---
ED HPI GENERAL MEDICAL PROBLEM - General Chief Complaint: Abdominal Pain Stated Complaint: ABDOMINAL PAIN Time Seen by Provider: 01/21/18 20:09 Source of Information: Reports: Patient History Limitations: Reports: No Limitations - History of Present Illness INITIAL COMMENTS - FREE TEXT/NARRATIVE: HISTORY AND PHYSICAL: History of present illness: Patient is a 37-year-old male who presents to the emergency room today with complaints of nausea, vomiting, decreased appetite, fever, "liver pain". He was seen in the emergency room last night and had a full workup done for these symptoms. 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 He was offered admission but declined, hoping he would feel better. He states that his symptoms have not improved and when he would like his "White blood cell count repeated". Review of systems: As per history of present illness and below otherwise all systems reviewed and negative. Past medical history: As per history of present illness and as reviewed below otherwise noncontributory. Surgical history: As per history of present illness and as reviewed below otherwise noncontributory. Social history: No reported history of drug or alcohol abuse. Family history: As per history of present illness and as reviewed below otherwise noncontributory. Physical exam: General: Well-developed and well-nourished 37-year-old male. Alert and oriented. Nontoxic appearing and in no acute distress. HEENT: Atraumatic, normocephalic, pupils equal and reactive bilaterally, negative for conjunctival pallor or scleral icterus, mucous membranes moist, throat clear, neck supple, nontender, trachea midline. No drooling or trismus noted. No meningeal signs Lungs: Fine inspiratory wheezing noted to the right posterior base and middle lobe otherwise clear to auscultation, breath sounds equal bilaterally, chest nontender. Heart: S1S2, regular rate and rhythm without overt murmur Abdomen: Soft, nondistended, nontender. Negative for masses or hepatosplenomegaly. Negative for costovertebral tenderness. Pelvis: Stable nontender. Genitourinary: Deferred. Rectal: Deferred. Skin: Flushed skin, Intact, warm, dry. No lesions or rashes noted. Extremities: Atraumatic, negative for cords or calf pain. Neurovascular unremarkable. Neuro: Awake, alert, oriented. Cranial nerves II through XII unremarkable. Cerebellum unremarkable. Motor and sensory unremarkable throughout. Exam nonfocal. Notes: Reviewing the note from his visit on 01/20/18: Had a CBC (22.83/repeat 18.69), CMP, blood cultures, UA, CT abdomen and pelvis (No intra-abdominal findings but a right middle lobe pneumonia). Patient's labs have improved from his evaluation yesterday. Current WBC 9.3. AST /ALT slightly elevated. He feels improved. Currently asking for a prescription for anxiety medication "like Paxil or something". We discussed that this should be addressed through his primary care provider, Kellee CARSON. As this medication should be managed and just did through them. We'll give him a prescription for Zofran. Encouraged him to complete his oral antibiotic. He voices understanding and is agreeable to plan of care. He denies any further questions at this time. Diagnostics: CBC, CMP Therapeutics: Normal saline, Toradol, Zofran Impression: Right lower chest wall pain Plan: 1. Please finish your antibiotic as directed. Zofran has been given to you to help alleviate ear nausea. 2. Advance her diet as tolerated. 3. Please make an appointment with your primary care provider Kellee Roca, for re-evaluation of your visit today and to address your anxiety. 4. Return to the ED as needed as discussed. Definitive disposition and diagnosis as appropriate pending reevaluation and review of above. Abdominal Pain Score (Numeric/FACES): 6 - Related Data Allergies Allergy/AdvReac Type Severity Reaction Status Date / Time No Known Allergies Allergy Verified 01/21/18 20:01 Home Meds: Home Meds Lisinopril 20 mg PO DAILY 08/12/17 [History] Acetaminophen/oxyCODONE [Percocet 325-10 MG] 1 tab PO Q6HR PRN 01/20/18 [History ] Past Medical History - Past Health History Medical/Surgical History: Denies Medical/Surgical History HEENT History: Reports: None Cardiovascular History: Reports: Hypertension Respiratory History: Reports: None Gastrointestinal History: Reports: Other (See Below) Other Gastrointestinal History: recently on antibiotics for colitis Genitourinary History: Reports: Other (See Below) Musculoskeletal History: Reports: None Neurological History: Reports: None Psychiatric History: Reports: Anxiety Endocrine/Metabolic History: Reports: None, Obesity/BMI 30+ Hematologic History: Reports: None Immunologic History: Reports: None Oncologic (Cancer) History: Reports: None Other Dermatologic History: Eczema arms, hands, feet - Infectious Disease History Infectious Disease History: Reports: Chicken Pox Other Infectious Disease History: childhood - Past Surgical History Head Surgeries/Procedures: Reports: None Other Male Surgeries/Procedures: 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 ED EXAM, GENERAL - Physical Exam Exam: See Below (See dictation) Course - Vital Signs Last Recorded V/S: Last Vital Signs Temp 100.5 F 01/21/18 19:58 Pulse 106 H 01/21/18 19:58 Resp 18 01/21/18 19:58 BP 136/75 01/21/18 19:58 Pulse Ox 96 01/21/18 19:58 - Orders/Labs/Meds Labs: Laboratory Tests 01/21/18 01/21/18 Range/Units 20:28 20:28 WBC 9.32 (4.0-11.0) K/uL RBC 5.21 (4.50-5.90) M/uL Hgb 15.0 (13.0-17.0) g/dL Hct 42.2 (38.0-50.0) % MCV 81.0 (80.0-98.0) fL MCH 28.8 (27.0-32.0) pg MCHC 35.5 (31.0-37.0) g/dL RDW Std Deviation 52.2 (28.0-62.0) fl RDW Coeff of Mike 18 H (11.0-15.0) % Plt Count 401 H (150-400) K/uL MPV 9.30 (7.40-12.00) fL Neut % (Auto) 53.6 (48.0-80.0) % Lymph % (Auto) 29.7 (16.0-40.0) % Hinds % (Auto) 10.1 (0.0-15.0) % Eos % (Auto) 4.6 (0.0-7.0) % Baso % (Auto) 2.0 H (0.0-1.5) % Neut # (Auto) 5.0 (1.4-5.7) K/uL Lymph # (Auto) 2.8 H (0.6-2.4) K/uL Hinds # (Auto) 0.9 H (0.0-0.8) K/uL Eos # (Auto) 0.4 (0.0-0.7) K/uL Baso # (Auto) 0.2 H (0.0-0.1) K/uL Nucleated RBC % 0.0 /100WBC Nucleated RBCs # 0 K/uL Sodium 134 L (136-148) mmol/L Potassium 4.3 (3.5-5.1) mmol/L Chloride 97 L (98-107) mmol/L Carbon Dioxide 27.4 (21.0-32.0) mmol/L BUN 14 (7.0-18.0) mg/dL Creatinine 1.4 H (0.8-1.3) mg/dL Est Cr Clr Drug Dosing 74.59 mL/min Estimated GFR (MDRD) 57.0 ml/min Glucose 92 (74-106) mg/dL Calcium 9.0 (8.5-10.1) mg/dL Total Bilirubin 0.7 (0.2-1.0) mg/dL AST 41 H (15-37) IU/L ALT 90 H (14-63) IU/L Alkaline Phosphatase 41 L (46-116) U/L Total Protein 8.1 (6.4-8.2) g/dL Albumin 3.5 (3.4-5.0) g/dL Globulin 4.6 H (2.0-3.5) g/dL Albumin/Globulin Ratio 0.8 L (1.3-2.8) Meds: Medications Discontinued Medications Generic Name Dose Route Start Last Admin Trade Name Freq PRN Reason Stop Dose Admin Sodium Chloride 1,000 mls @ 999 mls/hr 01/21/18 20:12 01/21/18 20:40 Normal Saline IV 01/21/18 21:12 999 mls/hr STAT ONE Administration Ketorolac Tromethamine 30 mg 01/21/18 20:12 01/21/18 20:44 Toradol IVPUSH 01/21/18 20:13 30 mg ONETIME ONE Administration Ondansetron HCl 4 mg 01/21/18 20:12 01/21/18 20:42 Zofran IVPUSH 01/21/18 20:13 4 mg ONETIME ONE Administration Departure - Departure Time of Disposition: 21:15 Disposition: Home, Self-Care 01 Clinical Impression: Chest wall pain - Discharge Information Referrals: PCP,None [Primary Care Provider] - Forms: ED Department Discharge Additional Instructions: The following information is given to patients seen in the emergency department who are being discharged to home. This information is to outline your options for follow-up care. We provide all patients seen in our emergency department with a follow-up referral. The need for follow-up, as well as the timing and circumstances, are variable depending upon the specifics of your emergency department visit. If you don't have a primary care physician on staff, we will provide you with a referral. We always advise you to contact your personal physician following an emergency department visit to inform them of the circumstance of the visit and for follow-up with them and/or the need for any referrals to a consulting specialist. The emergency department will also refer you to a specialist when appropriate. This referral assures that you have the opportunity for follow-up care with a specialist. All of these measure are taken in an effort to provide you with optimal care, which includes your follow-up. Under all circumstances we always encourage you to contact your private physician who remains a resource for coordinating your care. When calling for follow-up care, please make the office aware that this follow-up is from your recent emergency room visit. If for any reason you are refused follow-up, please contact the [facility] Emergency Department at and asked to speak to the emergency department charge nurse. [facility] [address] [place] [id number] 1. Please finish your antibiotic as directed. Zofran has been given to you to help alleviate ear nausea. 2. Advance her diet as tolerated. 3. Please make an appointment with your primary care provider Kellee Roca, for re-evaluation of your visit today and to address your anxiety. 4. Return to the ED as needed as discussed.
[2018-01-21 21:41] VITALS: BP 157/94
== END 2018-01-21 21:34 | disposition home or self-care (01) ==
LOC: MW.ED 19:27
DX: R07.89 Other chest pain (principal); I10 Essential (primary) hypertension; E66.9 Obesity, unspecified; F17.210 Nicotine dependence, cigarettes, uncomplicated; Z79.899 Other long term (current) drug therapy
CPT/HCPCS: 36415; 80053; 85025; 96361; 96374; 96375; 99284; J1885; J2405; J7040

== ENCOUNTER 2018-01-29 14:17 | Emergency (ER) | payer BC, OTHER ==
[2018-01-29] MEDS ORDERED: Sodium Chloride 0.9% 1,000 ML IV ONE (15:27)
--- NOTE | 2018-01-29 16:34 | EDM.PDOC ---
ED HPI GENERAL MEDICAL PROBLEM - General Chief Complaint: General Stated Complaint: WEAK Time Seen by Provider: 01/29/18 15:15 Source of Information: Reports: Patient History Limitations: Reports: No Limitations - History of Present Illness INITIAL COMMENTS - FREE TEXT/NARRATIVE: HISTORY AND PHYSICAL: History of present illness: [Comes to the emergency room from [facility]. he saw his primary care provider, Kellee Roca, today. He's been experiencing decreased appetite, vomiting , right upper quadrant abdominal pain and weight loss for the past several weeks. Today he received the diagnosis of hepatitis C. He complained to Kellee about feeling lightheaded and dizzy which he is attributing to dehydration. Denies vomiting. Per patient's report, Kellee requested he come to the ER to have further imaging of his liver due to right upper quadrant abdominal pain and IV fluids. Labs are received from [facility] showing white blood cell count of 11.6. Normal kidney function. ALT 76, AST 35, phosphorus 51. Hepatitis C antibody is reactive. X-ray was clear today. Patient states that he had pneumonia last week but he completed 5 days of antibiotics and is feeling improved.] Review of systems: As per history of present illness and below otherwise all systems reviewed and negative. Past medical history: As per history of present illness and as reviewed below otherwise noncontributory. Surgical history: As per history of present illness and as reviewed below otherwise noncontributory. Social history: No reported history of drug or alcohol abuse. Family history: As per history of present illness and as reviewed below otherwise noncontributory. Physical exam: HEENT: Atraumatic, normocephalic. Oral mucous membranes are pink and moist. Sclera are anicteric. Lungs: Clear to auscultation, breath sounds equal bilaterally. Heart: S1S2, regularrate and rhythm. Abdomen: bowel sounds are normoactive throughout. Abdomen is soft and nondistended. He is tender over his right upper quadrant with palpation. Hepatomegaly is appreciated. No masses guarding or rebound noted. CVA tenderness. Soft, nondistended, nontender. Pelvis: Stable nontender. Genitourinary: Deferred. Rectal: Deferred. Extremities: Atraumatic. Full range of motion Neurovascular unremarkable. Neuro: Awake, alert, oriented. Motor and sensory unremarkable throughout. Exam nonfocal. Diagnostics: [Abdominal ultrasound of right upper quadrant] Therapeutics: [1 L normal saline] Impression: [weakness dehydration Hepatitis C] Plan: [Ultrasound of right upper quadrant shows no abnormalities or enlargement. He is feeling improved after 500 mL of fluids and requests some juice and crackers. He completes full liter of normal saline and states that he is feeling significantly improved. He tolerated the juice and crackers well and would like to go home and try to eat a normal meal. He is encouraged to take bland foods at this point and gradually advance diet as tolerated. He is to follow-up with primary care this week as instructed by PCP. Strict return precautions are reviewed. Patients in agreement with today's plan.] Definitive disposition and diagnosis as appropriate pending reevaluation and review of above. Right Upper Abdomen Pain Score (Numeric/FACES): 3 - Related Data Allergies Allergy/AdvReac Type Severity Reaction Status Date / Time No Known Allergies Allergy Verified 01/21/18 20:01 Home Meds: Home Meds Lisinopril 20 mg PO DAILY 08/12/17 [History] Acetaminophen/oxyCODONE [Percocet 325-10 MG] 1 tab PO Q6HR PRN 01/20/18 [History ] Past Medical History - Past Health History Medical/Surgical History: Denies Medical/Surgical History HEENT History: Reports: None Cardiovascular History: Reports: Hypertension Respiratory History: Reports: None Gastrointestinal History: Reports: Other (See Below) Other Gastrointestinal History: recently on antibiotics for colitis Genitourinary History: Reports: Other (See Below) Musculoskeletal History: Reports: None Neurological History: Reports: None Psychiatric History: Reports: Anxiety Endocrine/Metabolic History: Reports: None, Obesity/BMI 30+ Hematologic History: Reports: None Immunologic History: Reports: None Oncologic (Cancer) History: Reports: None Other Dermatologic History: Eczema arms, hands, feet - Infectious Disease History Infectious Disease History: Reports: Chicken Pox Other Infectious Disease History: childhood - Past Surgical History Head Surgeries/Procedures: Reports: None Other Male Surgeries/Procedures: 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 ED EXAM, GENERAL - Physical Exam Exam: See Below Course - Vital Signs Last Recorded V/S: Last Vital Signs Temp 98.3 F 01/29/18 17:29 Pulse 86 01/29/18 17:29 Resp 16 01/29/18 17:29 BP 135/80 01/29/18 17:29 Pulse Ox 99 01/29/18 17:29 - Orders/Labs/Meds Orders: Active Orders 24 hr Category Date Time Status Abdomen Ltd [US] Stat Exams 01/29/18 15:26 Taken Meds: Medications Discontinued Medications Generic Name Dose Route Start Last Admin Trade Name Freq PRN Reason Stop Dose Admin Sodium Chloride 1,000 mls @ 999 mls/hr 01/29/18 15:27 01/29/18 15:37 Normal Saline IV 01/29/18 16:27 999 mls/hr STAT ONE Administration Departure - Departure Time of Disposition: 17:30 Disposition: Home, Self-Care 01 Condition: Good Clinical Impression: Generalized weakness - Discharge Information Instructions: Fatigue Referrals: PCP,None [Primary Care Provider] - Forms: ED Department Discharge Additional Instructions: The following information is given to patients seen in the emergency department who are being discharged to home. This information is to outline your options for follow-up care. We provide all patients seen in our emergency department with a follow-up referral. The need for follow-up, as well as the timing and circumstances, are variable depending upon the specifics of your emergency department visit. If you don't have a primary care physician on staff, we will provide you with a referral. We always advise you to contact your personal physician following an emergency department visit to inform them of the circumstance of the visit and for follow-up with them and/or the need for any referrals to a consulting specialist. The emergency department will also refer you to a specialist when appropriate. This referral assures that you have the opportunity for follow-up care with a specialist. All of these measure are taken in an effort to provide you with optimal care, which includes your follow-up. Under all circumstances we always encourage you to contact your private physician who remains a resource for coordinating your care. When calling for follow-up care, please make the office aware that this follow-up is from your recent emergency room visit. If for any reason you are refused follow-up, please contact the [facility] emergency department at and asked to speak to the emergency department charge nurse. [address] [id number] All up with your primary care provider at the clinic listed above in the next 4- 5 days. Push fluids, get plenty of rest. Gradually increase diet as tolerated. Return to ER as needed as discussed. - My Orders Last 24 Hours: My Active Orders 01/29/18 15:26 Abdomen Ltd [US] Stat - Assessment/Plan Last 24 Hours: My Active Orders 01/29/18 15:26 Abdomen Ltd [US] Stat
[2018-01-29 17:32] VITALS: BP 135/80
--- NOTE | 2018-02-01 10:19 | US ---
EXAM DATE: 01/29/18 PATIENT'S AGE: 37 Patient: ZEENAT CROCKETT Facility: [place], [place] Site . Site : [id number] Study: US Abdomen [id number] 4:12:38 PM Ordering Physician: Doctor Carr Final Report: INDICATION: Right upper quadrant abdomen pain TECHNIQUE: Ultrasound abdomen limited. Sonographic images of the right upper quadrant were obtained using roland-scale and color Doppler images. COMPARISON: CT abdomen pelvis January 20, 2018 FINDINGS: Liver: Normal in size and echotexture. No masses. No intrahepatic biliary dilatation. Gallbladder: No stones or sludge. Normal wall thickness. No pericholecystic fluid. Common bile duct: 3 mm. Pancreas: Normal. Right kidney: Normal in size. Normal echotexture and cortex. No masses, stones, or hydronephrosis. Vasculature: Proximal abdominal aorta and IVC are normal. IMPRESSION: Unremarkable right upper quadrant ultrasound. Dictated by Shaw Walker MD @ Jan 29 2018 4:29PM (Electronic Signature) Report Signed by Proxy. [email or web address]
== END 2018-01-29 17:57 | disposition home or self-care (01) ==
LOC: MW.ED 14:17
DX: R53.1 Weakness (principal); E86.0 Dehydration; B19.20 Unspecified viral hepatitis C without hepatic coma; I10 Essential (primary) hypertension; F41.9 Anxiety disorder, unspecified; E66.9 Obesity, unspecified; F17.210 Nicotine dependence, cigarettes, uncomplicated; Z79.899 Other long term (current) drug therapy; Z68.31 Body mass index [BMI] 31.0-31.9, adult
CPT/HCPCS: 76705; 96360; 96361; 99284; J7040; 99283

== ENCOUNTER 2018-10-11 22:14 | Emergency (ER) | payer BC, OTHER ==
[2018-10-11 22:24] VITALS: BP 137/93
--- NOTE | 2018-10-11 22:30 | EDM.PDOC ---
ED HPI GENERAL MEDICAL PROBLEM - General Chief Complaint: ENT Problem Stated Complaint: PT HAS TOOTHACHE Time Seen by Provider: 10/11/18 22:27 - History of Present Illness INITIAL COMMENTS - FREE TEXT/NARRATIVE: HISTORY AND PHYSICAL: History of present illness: Patient is a 38-year-old white male presents with concern of dental pain and possible abscesses had similar episodes in the past. He denies fever chills nausea vomiting Review of systems: As per history of present illness and below otherwise all systems reviewed and negative. Past medical history: As per history of present illness and as reviewed below otherwise noncontributory. Surgical history: As per history of present illness and as reviewed below otherwise noncontributory. Social history: No reported history of drug or alcohol abuse. Family history: As per history of present illness and as reviewed below otherwise noncontributory. Physical exam: HEENT: Atraumatic, normocephalic, pupils reactive, negative for conjunctival pallor or scleral icterus, mucous membranes moist, throat clear, neck supple, nontender, trachea midline. Generally poor dentition he does have some gingival edema in the region of the right lower molar Lungs: Clear to auscultation, breath sounds equal bilaterally, chest nontender. Heart: S1S2, regular, negative for clicks, rubs, or JVD. Abdomen: Soft, nondistended, nontender. Negative for masses or hepatosplenomegaly. Negative for costovertebral tenderness. Pelvis: Stable nontender. Genitourinary: Deferred. Rectal: Deferred. Extremities: Atraumatic, negative for cords or calf pain. Neurovascular unremarkable. Neuro: Awake, alert, oriented. Cranial nerves II through XII unremarkable. Cerebellum unremarkable. Motor and sensory unremarkable throughout. Exam nonfocal. Diagnostics: None Therapeutics: None Impression: #1 dentalgia rule out dental abscess Definitive disposition and diagnosis as appropriate pending reevaluation and review of above. 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 right lower molar Pain Score (Numeric/FACES): 8 - Related Data Allergies Allergy/AdvReac Type Severity Reaction Status Date / Time No Known Allergies Allergy Verified 10/11/18 22:24 Home Meds: Home Meds Lisinopril 20 mg PO DAILY 08/12/17 [History] Past Medical History - Past Health History Medical/Surgical History: Denies Medical/Surgical History HEENT History: Reports: None Cardiovascular History: Reports: Hypertension Respiratory History: Reports: None Gastrointestinal History: Reports: Other (See Below) Other Gastrointestinal History: recently on antibiotics for colitis Genitourinary History: Reports: Other (See Below) Musculoskeletal History: Reports: None Neurological History: Reports: None Psychiatric History: Reports: Anxiety Endocrine/Metabolic History: Reports: Obesity/BMI 30+ Hematologic History: Reports: None Immunologic History: Reports: None Oncologic (Cancer) History: Reports: None Other Dermatologic History: Eczema arms, hands, feet - Infectious Disease History Infectious Disease History: Reports: Chicken Pox Other Infectious Disease History: childhood - Past Surgical History Head Surgeries/Procedures: Reports: None Other Male Surgeries/Procedures: 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 ED EXAM, GENERAL - Physical Exam Exam: See Below (See dictation) Course - Vital Signs Last Recorded V/S: Last Vital Signs Temp 36.1 C 10/11/18 22:14 Pulse 75 10/11/18 22:14 Resp 18 10/11/18 22:14 BP 137/93 H 10/11/18 22:14 Pulse Ox 95 10/11/18 22:14 Departure - Departure Time of Disposition: 22:29 Disposition: Home, Self-Care 01 Condition: Good Clinical Impression: Dentalgia, Dental abscess - Discharge Information Referrals: PCP,None [Primary Care Provider] - Additional Instructions: The following information is given to patients seen in the emergency department who are being discharged to home. This information is to outline your options for follow-up care. We provide all patients seen in our emergency department with a follow-up referral. The need for follow-up, as well as the timing and circumstances, are variable depending upon the specifics of your emergency department visit. If you don't have a primary care physician on staff, we will provide you with a referral. We always advise you to contact your personal physician following an emergency department visit to inform them of the circumstance of the visit and for follow-up with them and/or the need for any referrals to a consulting specialist. The emergency department will also refer you to a specialist when appropriate. This referral assures that you have the opportunity for followup care with a specialist. All of these measure are taken in an effort to provide you with optimal care, which includes your followup. Under all circumstances we always encourage you to contact your private physician who remains a resource for coordinating your care. When calling for followup care, please make the office aware that this follow-up is from your recent emergency room visit. If for any reason you are refused follow-up, please contact the [facility] emergency department at and asked to speak to the emergency department charge nurse. Clindamycin as prescribed Motrin/Tylenol as directed follow-up dentist as discussed return as needed as discussed
== END 2018-10-11 22:45 | disposition home or self-care (01) ==
LOC: MW.ED 22:14
DX: K04.7 Periapical abscess without sinus (principal); K00.7 Teething syndrome; I10 Essential (primary) hypertension; F17.210 Nicotine dependence, cigarettes, uncomplicated; E66.9 Obesity, unspecified
CPT/HCPCS: 99282; 99283

== ENCOUNTER 2022-11-03 11:43 | Emergency (ER) | payer BC ==
[2022-11-03 12:39] VITALS: BP 129/75; PULSE 73
== END 2022-11-03 12:39 | disposition home or self-care (01) ==
LOC: MW.ED 11:43
DX: I88.9 Nonspecific lymphadenitis, unspecified (principal); I10 Essential (primary) hypertension; E66.9 Obesity, unspecified; Z68.32 Body mass index [BMI] 32.0-32.9, adult
CPT/HCPCS: 93005; 93010; 99283; 99284